=== PATIENT | female | born 1975 | race African-American/Black ===

== ENCOUNTER 2019-04-07 17:07 | Emergency (ER) | payer MEDICAID ==
[~2019-04-07] VITALS: Ht 170.2 cm; Wt 113.4 kg
[2019-04-07] MEDS ORDERED: Ketorolac 30mg Inj IV ONE (17:30)
--- NOTE | 2019-04-07 17:32 | NUR ---
ED Nurse Note:pt relates seen at [facility] this afternoon dc at 1400. arrives here via [facility] relates not able to void at this time. iv started at this time, no labs per pa. pt with ivf infusing. pt aware to obtain urine sample when able. toradol on hold until urine test resulted
--- NOTE | 2019-04-07 18:02 | NUR ---
ED Nurse Note: pt giving urine sample
--- NOTE | 2019-04-07 18:23 | NUR ---
ED Nurse Note: pt requesting water and food. aware to remain npo until ct resulted
--- NOTE | 2019-04-07 18:36 | Emergency Room Report ---
History of Present Illness General Chief Complaint: Abdominal Pain Source: Patient Present Illness HPI 43-year-old female with history of uterine fibroids, iron deficiency anemia currently having an IVC filter here complaining of 1 day of worsening abdominal pain. Patient was just transferred by paramedics from [place] as she was being seen today for the same symptoms. Denies nausea vomiting, diarrhea constipation. Patient reports that he sustained pain in the past nodules worsened today rating it 10 out of 10 without radiation. Patient reports that she was kicked out of [facility] after they did blood work and urine and her gave her morphine, observe Zofran, and had her follow-up with primary care provider. Patient felt like she did not get the right medical treatment and came to [facility] today. Patient is requesting an abdominal CT scan. Also feels that she is having in his marriage however she tells me that she is on her menses. Patient possibly has an underlying psychiatric disorder. Patient is moving around constantly ambulatory, denies pain upon palpation of the abdomen. Is requesting IV fluids and something for pain. Complains of faint few days ago however denies falling, syncope, head trauma. Patient gets blood transfusion every week and sees her private wealth advisor next week. Allergies: Coded Allergies: No Known Allergies (Unverified , 04/07/19) Patient History Past Medical History: see triage record Past Surgical History: unable to obtain Pertinent Family History: none Last Menstrual Period: 03/2019 Now: No Immunizations: UTD Reviewed Nursing Documentation: PMH: Agreed; PSxH: Agreed Nursing Documentation-PMH Past Medical History: No Stated History Review of Systems All Other Systems: negative except mentioned in HPI Physical Exam Vital Signs Date Time Temp Pulse Resp B/P (MAP) Pulse Ox O2 Delivery O2 Flow Rate FiO2 04/07/19 17:04 98.8 78 20 106/75 (85) 98 Room Air Sp02 EP Interpretation: reviewed, normal General Appearance: well appearing, no apparent distress, alert, GCS 15, non- toxic, obese, other - disheveled Head: normocephalic, atraumatic Eyes: bilateral eye normal inspection, bilateral eye PERRL ENT: normal ENT inspection, hearing grossly normal, normal pharynx Neck: normal inspection, full range of motion, supple, thyroid normal Respiratory: normal inspection, chest non-tender, lungs clear, no rhonchi, no respiratory distress, no wheezing Cardiovascular #1: normal inspection, regular rate, rhythm, no edema, no gallop , no murmur Gastrointestinal: normal bowel sounds, non tender, soft, no mass, no organomegaly Rectal: deferred Genitourinary: no CVA tenderness Musculoskeletal: normal inspection, back normal, digits/nails normal, gait/ station normal Neurologic: normal inspection, alert, oriented x3 Psychiatric: normal inspection, judgement/insight normal, memory normal Skin: normal inspection, normal color, no rash, warm/dry Lymphatic: normal inspection, no adenopathy Medical Decision Making PA Attestation All my diagnosis and treatment plans were reviewed ad discussed with my supervising physician Dr. Bertrand Diagnostic Impression: Primary Impression: Fibroid, uterine Additional Impressions: Iron deficiency anemia Hepatomegaly Hiatal hernia ER Course 43-year-old female with history of uterine fibroids, iron deficiency anemia currently having an IVC filter here complaining of 1 day of worsening abdominal pain. Patient was just transferred by paramedics from [place] as she was being seen today for the same symptoms. Denies nausea vomiting, diarrhea constipation. Patient reports that he sustained pain in the past nodules worsened today rating it 10 out of 10 without radiation. Patient reports that she was kicked out of [facility] after they did blood work and urine and her gave her morphine, observe Zofran, and had her follow-up with primary care provider. Patient felt like she did not get the right medical treatment and came to [facility] today. Patient is requesting an abdominal CT scan. Also feels that she is having in his marriage however she tells me that she is on her menses. Patient possibly has an underlying psychiatric disorder. Patient is moving around constantly ambulatory, denies pain upon palpation of the abdomen. Is requesting IV fluids and something for pain. Complains of faint few days ago however denies falling, syncope, head trauma. Patient gets blood transfusion every week and sees her private wealth advisor next week. Ddx considered but are not limited to: appendicitis, cholycisitis, gastritis, gasthroentritis, UTI, pylonephritis, SBO, diverticulitis, influenza with GI manifestation, LA, complication with , fibroids Vital signs: are WNL, pt. is afebrile H&PE are most consistent with: Hepatomegaly, hiatal hernia, iron deficiency anemia, uterine fibroids ORDERS: abdominal CT, urine , Toradol, NS bolus, naproxen ED INTERVENTIONS: Toradol, NS bolus DISCHARGE: At this time pt. is stable for d/c to home. Will provide printed patient care instructions, and any necessary prescriptions. Care plan and follow up instructions have been discussed with the patient prior to discharge. Patient to follow-up with a primary care provider, resident assistant, and follow- up with private wealth advisor regarding IVC filter and transfusions CT/MRI/US Diagnostic Results CT/MRI/US Diagnostic Results : Imaging Test Ordered: CT abdomen pelvic no contrast Impression CT ABDOMEN & PELVIS Without Contrast: Cholecystectomy. Hepatomegaly. Small hiatal hernia. No nephrolithiasis or hydronephrosis. Enlarged uterus, possibly fibroids. Bowel is nondilated. No free fluid, free air, diverticulitis, or appendicitis. IVC filter. Last Vital Signs Date Time Temp Pulse Resp B/P (MAP) Pulse Ox O2 Delivery O2 Flow Rate FiO2 04/07/19 17:34 78 20 Room Air 04/07/19 17:04 98.8 106/75 (85) 98 Disposition: HOME, SELF-CARE Condition: Stable Scripts Naproxen* (NAPROXEN*) 500 Mg Tablet 500 MG ORAL TWICE A DAY, #30 TAB Prov: Pablo Ball 04/07/19 Referrals: [facility] (PCP) Patient Instructions: Hepatomegaly, [id number], Hiatal Hernia, Iron Deficiency Anemia, Adult, [id number], Uterine Fibroids, [id number] Additional Instructions: Follow-up with your resident assistant as well as your private wealth advisor for IV transfusion consider possibilities for taking care of your fibroids with your resident assistant take medication as directed follow-up with a primary care provider for further assessment of your hiatal hernia as well as you are enlarged liver Pablo Ball Apr 07, 2019 18:36
--- NOTE | 2019-04-07 18:48 | NUR ---
ED Nurse Note: returned from ct no changes in status
--- NOTE | 2019-04-07 19:05 | NUR ---
ED Nurse Note: Patient is resting comfortably, requested food an drink. Request accomodated.
[2019-04-07 19:41] VITALS: BP 145/75
[2019-04-07] MEDS ORDERED: NAPROXEN500 M2 ORAL (19:48)
--- NOTE | 2019-04-07 20:04 | NUR ---
ED Nurse Note: Patient cleared for discharge by ER provider, currently awaiting CD of CT from Radiology. Patient is A&Ox4, talkative, has no s/s of acute distress, verbalizes understanding of discharge instructions, is ambulatory with steady gait.
[2019-04-07 20:39] VITALS: BP 145/75
--- NOTE | 2019-04-07 20:41 | NUR ---
ED Nurse Note: Patient currently exiting the department. She will be using the bus to get home.
--- NOTE | 2019-04-08 08:52 | Diagnostic Imaging Report ---
Indication: Abdominal pain Technique: Continuous helical transaxial imaging of the abdomen and pelvis was obtained from the lung bases to the pubic symphysis. No intravenous contrast was administered. Coronal 2-D reformats were also obtained. Automatic Exposure Control was utilized. Total Dose length Product (DLP): 1121.[address] Dose Index Volume (CTDIvol): 19.51 mGy Comparison: none Findings: Lung bases are clear. Cholecystectomy noted. No hydronephrosis seen. IVC filter noted. Appendix is normal. Uterus is enlarged. Bladder is collapsed. Bowel gas pattern is nonobstructive. IMPRESSION: Enlarged uterus likely due to underlying fibroids IVC filter Status post cholecystectomy [facility] has communicated the preliminary results to the Emergency Department. Their findings are largely concordant with this report. The CT scanner at [facility] is accredited by the [employer] and the scans are performed using dose optimization techniques as appropriate to a performed exam including Automatic Exposure control.
== END 2019-04-07 20:41 | disposition home or self-care (01) ==
LOC: EDBD 17:07 → EMR 17:57
DX: D25.9 Leiomyoma of uterus, unspecified (principal); D50.9 Iron deficiency anemia, unspecified; R16.0 Hepatomegaly, not elsewhere classified; K44.9 Diaphragmatic hernia without obstruction or gangrene
CPT/HCPCS: 74176; 81025; 96374; 99284; J1885; J7040